=== PATIENT | female | born 1985 | race Caucasian/White ===

== ENCOUNTER 2021-08-28 10:47 | Emergency (ER) | payer OTHER ==
[~2021-08-28] VITALS: Ht 165.1 cm; Wt 68.0 kg
--- NOTE | 2021-08-28 10:58 | NUR ---
PT BIBSELF C/O MID CP RAD TO BACK, FEELING DIZZY STARTED THIS MORNING. PT IS A/O X4, RR EVEN AND UNLABORED, NO SOB NOTED. PATIENT TAKEN TO ER BED 03. CONNECTED TO CARDIAC AND POX MONITOR.
[2021-08-28 11:23] VITALS: BP 120/85
== END 2021-08-28 11:24 | disposition home or self-care (01) ==
LOC: ER 10:47
DX: F41.9 Anxiety disorder, unspecified (principal); Z60.2 Problems related to living alone